=== PATIENT | male | born 1975 | race Caucasian/White ===

== ENCOUNTER 2021-09-27 09:10 | Outpatient (REF) | payer BC, SELFPAY ==
[2021-09-27 11:12] LABS: MANUAL DIFF FLAG NO
[2021-09-27 11:19] LABS: Basophils Percent Auto 0.6 % (0-2); Eosinophils Absolute Auto 0.2 X10*3/uL (0.0-0.4); Eosinophils Percent Auto 3.1 % (0-4); Hematocrit 46.2 % (42.0-52.0); Hemoglobin 15.9 g/dl (14.0-18.0); Imm Gran Abs Auto 0.01 X10*3/uL (0.00-0.03); Imm Gran Pct Auto 0.2 % (0.0-0.4); Lymphocytes Absolute Auto 2.7 X10*3/uL (1.2-4.9); Lymphocytes Percent Auto 42.6 % (20-40); Mean Corpuscular HGB Conc 34.4 g/dl (31.0-36.0); Mean Platelet Volume 9.3 fL (9.4-12.4); Monocytes Absolute Auto 0.6 X10*3/uL (0.1-1.2); Monocytes Percent Auto 8.8 % (2-11); Neutrophils Absolute Auto 2.9 x10*3/uL (2.0-8.3); Neutrophils Percent Auto 44.7 % (45-73); Platelet Count 267 X10*3/uL (160-400); Red Blood Count 4.97 X10*6/uL (4.60-5.80); Red Cell Distribution Width 11.9 % (11.0-16.0); White Blood Count 6.4 X10*3/uL (4.8-10.8)
[2021-09-27 11:40] LABS: Alanine Aminotransferase 52 U/L (0-40); Albumin Level 4.1 g/dL (3.5-5.0); Alkaline Phosphatase 101 U/L (39-117); Anion Gap 13 (12-20); Aspartate Amino Transferase 39 U/L (5-37); Bilirubin Total 0.5 mg/dL (0.0-1.0); Blood Urea Nitrogen 14 mg/dL (9-16); Calcium 9.4 mg/dL (8.4-10.2); Carbon Dioxide 26 mmol/L (22-29); Chloride 105 mmol/L (96-108); Cholesterol 196 mg/dL; Estimated Glomerular Filt Rate > 60; Glucose Fasting 86 mg/dL (60-99); HDL Cholesterol 43 mg/dL; LDL Cholesterol Calculated 111 mg/dl; Potassium 4.1 mmol/L (3.3-5.1); Sodium 140 mmol/L (135-145); Total Protein 7.2 g/dL (6.5-8.0); Triglycerides 210 mg/dL
[2021-09-27 11:46] LABS: Vitamin D 25-OH Total 29.3 ng/mL (>30)
[2021-09-29 05:24] LABS: Folate 4.6 ng/mL (> or = 4.0); Vitamin B12 357 pg/mL (200-900)
== END 2021-09-27 09:11 | disposition home or self-care (01) ==
LOC: HO.HMGCLDS 09:10
PROVIDERS: Visit Provider Internal Medicine
DX: Z00.01 Encounter for general adult medical examination with abnormal findings (principal)
CPT/HCPCS: 36415; 80053; 80061; 82306; 82607; 82746; 85025

== ENCOUNTER → 2021-11-24 12:02 | Outpatient (BNVA) | payer BC, SELFPAY | PROVIDERS: PCP Internal Medicine; Referring Provider Internal Medicine; Visit Provider Physician Assistant | DX: Z13.89 Encounter for screening for other disorder (principal) ==

== ENCOUNTER 2022-07-06 09:30 | Day surgery (SDC) | payer BC, SELFPAY ==
[2022-06-29 10:16] VITALS: BMI 29.4
--- NOTE | 2022-07-03 11:06 | HO.ANESPROP2 ---
Documented by User: Marlyn Espinoza NP 07/03/22 11:06 HPI - Anesthesia Eval Consult details Narrative: 46yo M for Upper Endoscopy and Colonoscopy [facility] Active Problems Active Problems: All Active Problems (Updated 11/24/21 @ 12:53 by Diamond Polk PA-C) Encounter for screening colonoscopy (Acute) Essential hypertension (Acute) Alcohol use disorder, mild, in controlled environment (Acute ~11/24/21) Smoker unmotivated to quit (Acute) Chronic GERD (Acute) Past Medical History Medical History Alcohol use disorder, mild, in controlled environment (~11/24/21) Chronic GERD Essential hypertension Smoker unmotivated to quit Family History Family History Brother Substance use disorder Surgical History Surgical History (Updated 07/06/22 @ 10:02 by Denae Irby RN) H/O neck surgery Social History Social History (Updated 11/24/21 @ 12:29 by Diamond Polk PA-C) Housing: Apartment Alcohol intake: current Patient Tobacco Use Status: Current everyday Tobacco user Cigarette Packs Per Day: 0 Cigarettes Per Day: 12 Smoked in Last 30 Days: Yes e-Cigarette/Vaping Use: Never Used Patient Interested in Nicotine Replacement: No Are you DNR?: No Advance Directives: No Advance Directives Information Provided: Yes Nutrition Risks: No Nutritional Risk Current occupational status: employed Current occupation: [employer] Allergies Allergy/AdvReac Type Severity Reaction Status Date / Time cat dander [CAT] Allergy Mild SNEEZE Verified 07/06/22 09:48 DUST Allergy Mild SNEEZE Uncoded 07/06/22 10:11 Home Medications Medication Instructions Recorded Confirmed Last Taken Type amlodipine 5 mg-benazepril 10 mg 1 cap PO DAILY 09/16/21 07/06/22 07/05/22 History capsule omeprazole 20 mg capsule,delayed 20 mg PO DAILY 09/16/21 07/06/22 07/06/22 History release Exam Exam Date and Time: July 03, 2022 1106 Height,Weight and Vital Signs: Height 5 ft 10 in Weight 92.986 kg Assessment and Plan Assessment Anesthesia Assessment: Chart Reviewed Documented by User: Arianna Byrne MD 07/06/22 10:44 [facility] Past Medical History Medical History Alcohol use disorder, mild, in controlled environment (~11/24/21) Chronic GERD Essential hypertension Smoker unmotivated to quit Family History Family History Brother Substance use disorder Family history of problems with anesthesia: No Surgical History Surgical History (Updated 07/06/22 @ 10:02 by Denae Irby RN) H/O neck surgery History of Problems with Anesthesia: No Social History Social History (Updated 11/24/21 @ 12:29 by Diamond Polk PA-C) Housing: Apartment Alcohol intake: current Patient Tobacco Use Status: Current everyday Tobacco user Cigarette Packs Per Day: 0 Cigarettes Per Day: 12 Smoked in Last 30 Days: Yes e-Cigarette/Vaping Use: Never Used Patient Interested in Nicotine Replacement: No Are you DNR?: No Advance Directives: No Advance Directives Information Provided: Yes Nutrition Risks: No Nutritional Risk Current occupational status: employed Current occupation: [employer] Allergies Allergy/AdvReac Type Severity Reaction Status Date / Time cat dander [CAT] Allergy Mild SNEEZE Verified 07/06/22 09:48 DUST Allergy Mild SNEEZE Uncoded 07/06/22 10:11 Home Medications Medication Instructions Recorded Confirmed Last Taken Type amlodipine 5 mg-benazepril 10 mg 1 cap PO DAILY 09/16/21 07/06/22 07/05/22 History capsule omeprazole 20 mg capsule,delayed 20 mg PO DAILY 09/16/21 07/06/22 07/06/22 History release Exam Airway Mallampati Class: II (Missing one, one cap top right) TM Dist: >3cm Neck ROM: Full Heart: rrr Lungs: cta Assessment and Plan Assessment Anesthesia Assessment: Anesthesia Plan Discussed Final Anesthetic Review Family History of Problems with Anesthesia: No History of Problems with Anesthesia: No NPO: Yes ASA Class: II Final Preanesthetic Review: No Changes in Pt Med Stat, Meds/Allgs Chart Reviewed and Consent Obtained/Reviewed Patient Risk: Intermediate Procedure Risk: Intermediate Anesthetic Plan Anesthetic Plan: MAC: Disposition: Standard PACU
[2022-07-06] MEDS: Lactated Ringers 1,000 ML 100 ML IVCONT (09:49)
[2022-07-06 09:50] VITALS: BP 153/85; PULSE 70; RESP 18; TEMP 36.9; O2SAT 99
--- NOTE | 2022-07-06 10:09 | PC.NURSE ---
patient states he drinks vodka daily. states last drink was night before last. vs wnl. not diaphoretic. comfortable in bed. no hallucinations. not anxious.
--- NOTE | 2022-07-06 11:17 | MHC.SHP ---
Pre-Procedural Eval Section A Date of Service: 07/06/22 Section B Chief Complaint: reflux disease,screening Details of Present Illness: 46 y.o M with hx of obesity, smoking, etOH use here for EGD and colonoscopy for GERD/carranza' screening and CRC screening. Relevant Social History: Other (specify) (smokes, etOH use ) Present Medications: see Short Stay Collaborative assessment History of Previous Operations: No relevant previous surgery Allergies: Allergies Allergy/AdvReac Type Severity Reaction Status Date / Time cat dander [CAT] Allergy Mild SNEEZE Verified 07/06/22 09:48 DUST Allergy Mild SNEEZE Uncoded 07/06/22 10:11 Review of Systems Review of Systems Comment: 10 point ROS negative exceot as above Exam Exam Comment: Gen appear: No acute distress, well nourished HEENT: no icterus Chest: No overt resp distress Abd: soft, nontender, nondistended Psych: Stable affect, answering questions appropriately Neuro: A/Ox3 noted to move all extremities spontaneously Ext: no peripheral edema Plan Diagnosis/Plan: Unchanged I have reviewed the history and physical and performed a pertinent physical examination on my patient. No changes have occurred unless specified.
--- NOTE | 2022-07-06 11:38 | P.OP_ITS ---
Operative Note Operative Note Date of Service: 07/06/22 Narrative: Procedure: Esophagogastroduodenoscopy and colonoscopy Endoscopist: Sapphire Hernandez MD Indication: GERD, screening Anesthesia Provider: Dr Chastity Valdez Anesthesia Type: MAC Instrument: GIF-H190 and PCF-[id number] Consent: Indication, risks vs benefits, and alternatives were discussed with the patient who gave written informed consent to proceed. EKG, pulse, pulse oximetry and blood pressure were monitored throughout the procedure. Medications: Please see anesthesia flowsheet. Colonoscopy procedure: The patient was brought to the procedure room and placed in the left lateral decubitus position. IV medications were administered by the anesthesia provider in attendance. A digital rectal exam was performed which was normal. The colonoscope was then inserted through the anus and advanced through the colon to the cecum at 80 cm. Mucosa was carefully examined under high definition white light as the instrument was slowly withdrawn in a retrograde panoramic fashion. Retroflexion was performed in ascending colon and rectum. The procedure was not difficult. There were no immediate obvious complications. The quality of the prep was BBPS: 3+3+3 = excellent Withdrawal time 13 minutes. Limitations: No limitations. Findings: Mucosa: Normal to cecum. Protruding lesions: * 1 sessile polyp of size 7 mm in descending colon. Cold snare polypectomy was performed. The polyp was completely removed and retrieved. * Medium internal hemorrhoids without stigmata of recent bleeding. EGD Procedure:?? The patient was then turned for the upper endoscopy. The endoscope was introduced through the bite block, and advanced to the second part of duodenum. The mucosa was carefully examined on slow withdrawal of the endoscope. The patient tolerated the procedure well. There were no immediate complications.? ? EGD Findings:? * Esophagus:? Scattered whitish exudates were noted in the lower esophagus. Cold forceps biopsies were obtained. * Stomach:?A few erosions were noted in the antrum. Random cold forceps gastric biopsies were taken to rule out H Pylori infection. * Duodenum:? Normal mucosa was noted in the whole of the examined duodenum. ? Impression:? 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 * Internal hemorrhoids ?? Recommendations:?? * Follow biopsy results. Our office will call or send a letter with results within 7-10 days. * Start/continue PPI therapy. * If H pylori +, patient will be prescribed eradication therapy followed by test of cure. * Avoid NSAIDs. Smoking cessation * Repeat colonoscopy in 7-10 years. * Above has been reviewed with the patient. Relevant educational hand outs were provided at discharge.
[2022-07-06 11:54] VITALS: BP 112/73; PULSE 61; RESP 16; TEMP 36.3; O2SAT 96
[2022-07-06 12:09] VITALS: BP 150/77; PULSE 62; RESP 16; O2SAT 95
[2022-07-06 12:24] VITALS: BP 148/73; PULSE 61; RESP 16; TEMP 36.3; O2SAT 97
== END 2022-07-06 13:01 | disposition home or self-care (01) ==
PROVIDERS: PCP Internal Medicine; Visit Provider Internal Medicine
PROC: (CPT 45385; principal; 2022-07-06 10:30)
DX: Z12.11 Encounter for screening for malignant neoplasm of colon (principal); Z86.010 Personal history of colon polyps; D12.4 Benign neoplasm of descending colon; K64.8 Other hemorrhoids; K21.9 Gastro-esophageal reflux disease without esophagitis; B37.81 Candidal esophagitis; K29.50 Unspecified chronic gastritis without bleeding; F10.10 Alcohol abuse, uncomplicated; I10 Essential (primary) hypertension; Z79.899 Other long term (current) drug therapy; F17.200 Nicotine dependence, unspecified, uncomplicated
CPT/HCPCS: 45385; 43239; 88305; 88342

== ENCOUNTER → 2022-08-27 10:21 | Outpatient (BNVA) | payer BC, SELFPAY | PROVIDERS: PCP Internal Medicine; Visit Provider Physician Assistant | DX: Z13.89 Encounter for screening for other disorder (principal) ==

== ENCOUNTER 2023-11-23 12:03 | Outpatient (AMB) | payer OTHER, SELFPAY ==
--- NOTE | 2023-11-23 11:57 | HO.NEPHOV_ITS ---
HPI HPI Comments History of Present Illness Details 48-year-old man with hypertension. He was previously seen few years ago. He remains compliant with his medications. Still drinks 10 light beers a day. Used to drink 20! 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:58 Height 5 ft 10 in Weight 215 lb BMI 30.8 BP 118/78 Blood Pressure Location Lt brachial Position Sitting Pulse 67 Pulse Source Pulse Oximeter Pulse Oximetry (%) 98 Oxygen Delivery Method Room Air Physical Exam Vital Signs: Last Vital Signs Pulse 67 11/23/23 11:58 BP 118/78 11/23/23 11:58 Pulse Ox 98 11/23/23 11:58 Oxygen Delivery Method Room Air 11/23/23 11:58 BMI result Body Mass Index 30.8 Const General: comfortable Nutritional Appearance: well nourished Orientation/consciousness: patient oriented x3 HEENT Head: No normal to inspection Mouth: moist mucous membranes Neck Neck: Yes supple and Yes no JVD Resp Auscultation: clear to auscultation bilaterally, no rales and rub present Cardio Jugular venous distension: no JVD Palpation: no palpable S3 and no palpable S4 Heart sounds: no rubs GI Palpation (GI): Soft to palpation and nontender Percussion: No Fluid wave present General: Yes no CVA tenderness Back/Spine/Pelvis Back: no CVA tenderness Skin General skin exam: no rashes or lesions noted Neuro General: patient oriented x3 Extrem General: Yes no pedal edema and No clubbing Assessment & Plan Assessment & Plan (1) Essential hypertension: Code(s): I10 - Essential (primary) hypertension Plan: Blood pressure well controlled Discussed low-salt diet. Encouraged him to cut back on alcohol intake. Refills were given for the current prescription. Routine lab work ordered Orders: Orders Basic Metabolic Panel Today I10 - Essential (primary) hypertension Creatinine Urine Today I10 - Essential (primary) hypertension, N05.9 - Unsp ecified nephritic syndrome with unspecified morphologic changes UA and rflx microscopic Today I10 - Essential (primary) hypertension Total Protein Urine Random Today I10 - Essential (primary) hypertension Medications: Refilled amlodipine-benazepril 5-10 mg 1 cap PO DAILY 90 caps 2RF Coding Level of Care Code New Pt Level 4 (65886) Diagnoses Essential hypertension I10 Results Reviewed Nephrology Results: Hgb 15.9 g/dl (14.0-18.0) 09/27/21 WBC 6.4 X10*3/uL (4.8-10.8) 09/27/21 Plt Count 267 X10*3/uL (160-400) 09/27/21 Sodium 140 mmol/L (135-145) 09/27/21 Potassium 4.1 mmol/L (3.3-5.1) 09/27/21 Chloride 105 mmol/L (96-108) 09/27/21 Carbon Dioxide 26 mmol/L (22-29) 09/27/21 BUN 14 mg/dL (9-16) 09/27/21 Creatinine 0.87 mg/dL (0.5-1.4) 09/27/21 Calcium 9.4 mg/dL (8.4-10.2) 09/27/21 Urine Protein NEGATIVE MG/DL (NEG - TRACE) 02/14/19
[2023-11-23 11:58] VITALS: BP 118/78; PULSE 67; O2SAT 98; BMI 30.8
== END 2023-11-23 12:30 | disposition home or self-care (01) ==
PROVIDERS: PCP Internal Medicine; Visit Provider Internal Medicine Hypertension Specialist
DX: I10 Essential (primary) hypertension (principal)
CPT/HCPCS: 99204

== ENCOUNTER → 2023-11-23 12:03 | Outpatient (BNVA) | payer OTHER, SELFPAY | PROVIDERS: PCP Internal Medicine; Visit Provider Internal Medicine Hypertension Specialist | DX: I10 Essential (primary) hypertension (principal) | CPT/HCPCS: 99202 ==

== ENCOUNTER 2023-11-24 07:57 | Outpatient (REF) | payer OTHER, SELFPAY ==
[2023-11-24 10:34] LABS: Appearance Urine Clear; Color Urine Yellow; Glucose Urine UA Negative (Negative); Leukocyte Esterase Urine Negative (Negative); Nitrite Urine Negative (Negative); Urine Blood Negative (Negative); Urine Ketones Negative (Negative); Urine Protein Negative (Neg-Trace)
[2023-11-24 10:54] LABS: Anion Gap 12 (12-20); Blood Urea Nitrogen 15 mg/dL (9-16); Calcium 9.1 mg/dL (8.4-10.2); Carbon Dioxide 25 mmol/L (22-29); Chloride 106 mmol/L (96-108); Estimated Glomerular Filt Rate > 60; Glucose Random 78 mg/dL (60-115); Potassium 4.2 mmol/L (3.3-5.1); Sodium 139 mmol/L (135-145)
[2023-11-24 12:02] LABS: Creatinine Urine 158.03 mg/dL; Total Protein Urine Random < 7 mg/dL (<12)
== END 2023-11-24 07:58 | disposition home or self-care (01) ==
LOC: HO.HMGCLDS 07:57
PROVIDERS: PCP Internal Medicine; Visit Provider Internal Medicine Hypertension Specialist
DX: I10 Essential (primary) hypertension (principal); N05.9 Unspecified nephritic syndrome with unspecified morphologic changes
CPT/HCPCS: 36415; 80048; 81003; 82570; 84156

== ENCOUNTER 2024-06-05 09:28 | Outpatient (AMB) | payer OTHER, SELFPAY ==
--- NOTE | 2024-06-05 09:56 | MHC.PC.OV ---
Vital Signs 06/05/24 09:57 Height 5 ft 10 in Weight 215 lb BMI 30.8 BP 132/82 Blood Pressure Location Rt brachial Position Sitting Pulse 66 Pulse Source Pulse Oximeter Pulse Oximetry (%) 97 Oxygen Delivery Method Room Air Intake Visit Reasons: PE- NEEDS PHQ-9 Intake Note: Pt is here today for her PE Allergies cat dander [CAT] Allergy (Mild, Verified 06/05/24 10:15) SNEEZE DUST Allergy (Mild, Uncoded 06/05/24 10:15) SNEEZE Medication List - Last Reconciled 06/05/24 by Sarah Palmer MD amlodipine-benazepril 5-10 mg 1 cap PO DAILY omeprazole 20 mg PO DAILY Tobacco use date assessed: 06/05/24 Dental Screening Dental Screen Date: 06/05/24 Did you have a dental visit in the last 12 months?: No Did you have a dental problem in the last 6 months where you did not have access to dental care?: No Was dental information given to patient?: Patient has dentist HPI PE- NEEDS PHQ-9 HPI Details 48 year old male with hypertension , has chronic GERD, cigarette smoker unmotivated to quit, here for a physical exam. He has been compliant with taking his medications currently on amlodipine-benazepril 5-10 mg taken 1 daily, and takes omeprazole 20 mg once a day for his heartburn. Has heavy alcohol use, drinks at least 5 or 6 beers almost daily. History of adenomatous colon polyp removed by Dr. Hernandez on colonoscopy done in 2021. Due again for repeat in 2026. [facility] Medical History (Updated 06/11/24 @ 18:02 by Sarah Palmer MD) Heavy alcohol use History of adenomatous polyp of colon Elevated liver transaminase level Tubular adenoma of colon Essential hypertension Smoker unmotivated to quit Chronic GERD Surgical History History of esophagogastroduodenoscopy (EGD) Hx of colonoscopy H/O neck surgery Family History Brother Substance use disorder Social History Housing: Apartment Alcohol intake: current Patient Tobacco Use Status: Current everyday Tobacco user Cigarette Packs Per Day: 0 Cigarettes Per Day: 12 e-Cigarette/Vaping Use: Never Used Current occupational status: 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 1. Little interest or pleasure in doing things: not at all 2. Feeling down, depressed, or hopeless: not at all 3. Trouble falling or staying asleep, or sleeping too much: not at all 4. Feeling tired or having little energy: not at all 5. Poor appetite or overeating: not at all 6. Feeling bad about yourself - or that you are a failure or have let yourself or your family down: not at all 7. Trouble concentrating on things, such as reading the newspaper or watching television: not at all 8. Moving or speaking so slowly that other people could have noticed. Or the opposite - being so fidgety or restless that you have been moving around a lot more than usual: not at all 9. Thoughts that you would be better off or of hurting yourself in some way: not at all Total score: 0 Depression Screening Interpretation: Negative Depression Screening Done: Yes 81102 - PHQ-9 Billing: Yes Source: Developed by Drs. Matthew Valle, Renetta Cabral, Gian Samaniego and colleagues, with an educational perfecto from [employer]. Thrive Questionnaire Date Thrive assessed: 06/05/24 I am a: Patient What is your living situation today?: I have a steady place to live Within the past 12 months, did the food you bought not last and you didn't have the money to get more?: Never true Within the past 12 months, did you worry whether your food would run out before you got money to buy more?: Never true Do you have trouble paying for medicines?: No Do you have trouble getting transportation to medical appointments?: No Do you have trouble paying your heating and electricity bill?: No Do you have trouble taking care of your child, family member or friend?: No Do you have trouble with day-to-day activities such as bathing, preparing meals, shopping, managing finances, etc.?: No Are you currently unemployed and looking for a job?: No Are you interested in more education?: No Please select the resources that you would like help with: None Currently or been in a relationship where the following occur: No concerns reported THRIVE Score: 0 AUDIT C Alcohol Use Questionnaire (AUDIT-C) 1. How often do you have a drink containing alcohol?: 4 or more times a week 2. How many drinks containing alcohol do you have on a typical day when you are drinking?: 5 or 6 3. How often do you have six or more drinks on one occasion?: Never Total Score: 6 Score Reviewed/Action Taken: Yes (Patient strongly encouraged to cut back abstain from all alcohol intake) CHUY-7 AMB Questionnaire CHUY-7 Date CHUY - 7 assessed: 06/05/24 Feeling nervous, anxious, or on edge: 0 = Not at all Not being able to stop or control worryin = Not at all Worrying too much about different things: 0 = Not at all Trouble relaxin = Not at all Being so restless that it is hard to sit still: 0 = Not at all Becoming easily annoyed or irritable: 0 = Not at all Feeling afraid as if something awful might happen: 0 = Not at all Total CHUY-7 score (0-4 normal; 5-9 mild; 10-14 moderate; 15-21 severe): 0 Source: Developed by Drs. Matthew Valle, Renetta Cabral, Gian Samaniego and colleagues, with an educational perfecto from [employer]. CHUY-7 Assessment Billing CHUY-7 Assessment Tool: CHUY-7 Assessment 78953 Review of Systems Const Denies body aches, Denies fatigue, Denies fever(s), Denies headache(s), Denies weakness, Denies weight gain and Denies weight loss Eyes Denies change in vision ENT Denies dizziness, Denies headache(s), Denies nasal congestion, Denies nasal discharge and Denies sore throat Card Denies chest pain, Denies lightheadedness, Denies palpitations and Denies dyspnea Resp Denies chest congestion, Denies cough, Denies dyspnea and Denies wheezing GI Denies abdominal pain, Denies change in bowel habits and Denies heartburn Denies dysuria, Denies urinary frequency and Denies urinary urgency Musc Reports no additional complaints Skin/Breast Denies lesions and Denies rash Neuro Denies dizziness, Denies headache(s) and Denies weakness Psych Reports as per HPI Endo Denies fatigue, Denies polydipsia, Denies polyuria and Denies palpitations Juliocesar/Lymph Denies easy bruising Aller/Immun Denies seasonal rhinorrhea and Denies wheezing Physical exam (Primary Care) Vital Signs: Last Vital Signs Pulse 66 06/05/24 09:57 BP 132/82 06/05/24 09:57 Pulse Ox 97 06/05/24 09:57 Oxygen Delivery Method Room Air 06/05/24 09:57 BMI result Body Mass Index 30.8 Tobacco/Smoking Status: Tobacco use Status Tobacco use date assessed 06/05/24 06/05/24 09:59 Patient Tobacco Use Status Current everyday Tobacco 06/05/24 09:59 e-Cigarette/Vaping Use Never Used 06/05/24 09:59 PHQ-9: PHQ-9 Score PHQ-9: Total score 0 06/05/24 10:17 Depression Screening Interpretation: Negative Thrive Assessment: Date of Thrive Assessment Date Thrive assessed 06/05/24 06/05/24 09:59 Currently or been in a relationship where the following occur: No concerns reported Const General: cooperative, comfortable and no acute distress Nutritional Appearance: obese Orientation/consciousness: patient oriented x3 HENMT Head: Yes normocephalic Ears: hearing grossly normal bilaterally, TM's normal bilaterally and EAC's normal General nose exam: Normal external nose present and No nasal discharge present Face and sinus: Yes face symmetric Mouth: Normal oral and palatal mucosa present and moist mucous membranes Eyes General: appearance normal, both eyes and all related structures Neck Neck: Yes full ROM, Yes no lymphadenopathy and Yes supple Thyroid: Thyroid normal Chest Chest palpation & inspection: normal inspection of the chest Resp Effort & Inspection: normal respiratory effort and able to speak in complete sentences Auscultation: clear to auscultation bilaterally Cardio Other: S1-S2 present regular rate and rhythm GI Inspection: Yes normal to inspection Palpation (GI): Soft to palpation, nontender, no guarding and no masses Auscultation: normal bowel sounds Male General Exam: Yes normal external exam Back/Spine/Pelvis Back: No back tenderness Skin General skin exam: no rashes or lesions noted Neuro General: patient oriented x3, gait normal, tone normal, moves all extremities, Normal light touch and pain sensation, no focal motor deficits and CN's II-XI intact bilaterally Extrem General: Yes full ROM, Yes no joint enlargement, Yes no clubbing, cyanosis or edema, Yes no pedal edema, Yes no calf tenderness and Yes normal gait Psych Appearance: grossly normal and well kempt Mental Status: mental status grossly normal Speech and movement: Normal speech and movement present Affect: normal affect Attitude: cooperative Thought process: Normal thought process present Coding Level of Care Code Est Pt Prev Care 40-64y(66387) Diagnoses Annual visit for general adult medical examination with abnormal findings Z00.01 Chronic GERD K21.9 Smoker unmotivated to quit F17.200 Essential hypertension I10 Elevated liver transaminase level R74.01 History of adenomatous polyp of colon Z86.0101 History of vitamin D deficiency Z86.39 Heavy alcohol use F10.90 Advanced directives, counseling/discussion Z71.89 Additional Codes CHUY-7 Assessment Billing - CHUY-7 Assessment Tool: CHUY-7 Assessment 87393 ([id number]) Assessment & Plan Assessment & Plan (1) Annual visit for general adult medical examination with abnormal findings: Code(s): Z00.01 - Encounter for general adult medical examination with abnormal findings Plan: Will check appropriate labs. Recommended dental visit every 6 months and regular eye exams, at least every 2 years. Take adequate calcium in diet and vitamin-D 3 at 2000 IU per cap once a day, in addition to weight-bearing exercises to help maintain good muscle tone and weight control. Instructed to do self testicular exam check for any mass. Up-to-date with his screening colonoscopy, due again for recheck in 2026. Reminded to get his COVID booster, but does not want to get a flu vaccine, Tdap given in 2013, reminded that his due for a tetanus diphtheria booster this year, which he can get at the pharmacy (2) Chronic GERD: Code(s): K21.9 - Gastro-esophageal reflux disease without esophagitis Category: Medical Plan: Advised to cut back or abstain from drinking any alcoholic beverage, cut back on caffeine, smoking, continued on omeprazole 20 mg daily (3) Smoker unmotivated to quit: Code(s): F17.200 - Nicotine dependence, unspecified, uncomplicated Category: Social Hx Plan: Patient strongly advised to stop smoking, as smoking damages blood vessels, degenerative of joints and spine, damage to lungs and heart., predisposes to developing certain cancers like lung, breast, bladder, colon. Recommended to try decreasing cigarette use by 1-2 cigarettes a day. Advised to monitor what triggers are for smoking so that this can be discussed on the next office visit. We can discuss different options to quit smoking when ready. (4) Essential hypertension: Code(s): I10 - Essential (primary) hypertension Category: Medical Plan: Blood pressure at goal of less than 130/80. Continue with current medication. Reinforced importance of following a low sodium diet, getting regular exercise, and lowering stress levels. (5) Elevated liver transaminase level: Code(s): R74.01 - Elevation of levels of liver transaminase levels Category: Medical Plan: Patient with history of elevated liver enzymes likely due to fatty liver and alcohol intake (6) History of adenomatous polyp of colon: Comment: Seen on colonoscopy [address] Hernandez Code(s): Z86.0101 - Personal history of adenomatous and serrated colon polyps Category: Medical Plan: Due again for repeat colonoscopy 2026 (7) History of vitamin D deficiency: Code(s): Z86.39 - Personal history of other endocrine, nutritional and metabolic disease Plan: Will check vitamin-D level (8) Heavy alcohol use: Code(s): F10.90 - Alcohol use, unspecified, uncomplicated Category: Social Hx Plan: Strongly encouraged to abstain from cut back from alcohol intake. Offered referral for help with quitting patient declined (9) Advanced directives, counseling/discussion: Code(s): Z71.89 - Other specified counseling Plan: Initiated the conversation about Advanced Directives. Advanced Directives help patients prepare for current and future decisions about their medical treatment and place of care. Discussed with patient that it is a process where a patients current condition and prognosis are reviewed, their wishes for information regarding their illness are elicited, and likely medical dilemmas are presented and options discussed. Healthcare proxy form completed today The form can be amended as needed, reviewed yearly and make changes as needed Orders: Orders Comprehensive [place]. Panel Fast 06/05/24 F10.10 - Alcohol abuse, uncomplicated, F17.200 - Nicotine dependence, unspecified, uncomplicated, I10 - Essential (primary) hypertension, K21.9 - Gastro-esophageal reflux disease without esophagitis, R74.01 - Elevation of levels of liver transaminase levels, Z86.0101 - Personal history of adenomatous and serrated colon polyps Lipid Panel 06/05/24 F10.10 - Alcohol abuse, uncomplicated, F17.200 - Nicotine dependence, unspecified, uncomplicated, I10 - Essential (primary) hypertension, K21.9 - Gastro-esophageal reflux disease without esophagitis, R74.01 - Elevation of levels of liver transaminase levels, Z86.0101 - Personal history of adenomatous and serrated colon polyps Vitamin D 25-OH Total 06/05/24 Z86.39 - Personal history of other endocrine, nutritional and metabolic disease
[2024-06-05 09:57] VITALS: BP 132/82; PULSE 66; O2SAT 97; BMI 30.8
== END 2024-06-05 10:34 | disposition home or self-care (01) ==
PROVIDERS: PCP Internal Medicine; Visit Provider Internal Medicine
DX: Z00.01 Encounter for general adult medical examination with abnormal findings (principal); K21.9 Gastro-esophageal reflux disease without esophagitis; F17.200 Nicotine dependence, unspecified, uncomplicated; I10 Essential (primary) hypertension; R74.01 Elevation of levels of liver transaminase levels; Z86.0101 Personal history of adenomatous and serrated colon polyps; Z86.39 Personal history of other endocrine, nutritional and metabolic disease; F10.90 Alcohol use, unspecified, uncomplicated; Z71.89 Other specified counseling

== ENCOUNTER → 2024-06-05 09:28 | Outpatient (BNVA) | payer OTHER, SELFPAY | PROVIDERS: PCP Internal Medicine; Visit Provider Internal Medicine | DX: Z00.00 Encounter for general adult medical examination without abnormal findings (principal); K21.9 Gastro-esophageal reflux disease without esophagitis; I10 Essential (primary) hypertension; R74.01 Elevation of levels of liver transaminase levels; F10.90 Alcohol use, unspecified, uncomplicated; F17.210 Nicotine dependence, cigarettes, uncomplicated; Z86.0101 Personal history of adenomatous and serrated colon polyps; Z86.39 Personal history of other endocrine, nutritional and metabolic disease; Z79.899 Other long term (current) drug therapy; Z71.89 Other specified counseling | CPT/HCPCS: 96127; 99396 ==

== ENCOUNTER 2024-06-05 10:36 | Outpatient (REF) | payer OTHER, SELFPAY ==
[2024-06-05 13:52] LABS: Alanine Aminotransferase 28 U/L (0-40); Albumin Level 4.1 g/dL (3.5-5.0); Alkaline Phosphatase 115 U/L (39-117); Anion Gap 10 (12-20); Aspartate Amino Transferase 31 U/L (5-37); Bilirubin Total 0.5 mg/dL (0.0-1.0); Blood Urea Nitrogen 12 mg/dL (9-16); Calcium 9.5 mg/dL (8.4-10.2); Carbon Dioxide 26 mmol/L (22-29); Chloride 106 mmol/L (96-108); Cholesterol 176 mg/dL (<200); Estimated Glomerular Filt Rate > 60; Glucose Fasting 88 mg/dL (60-99); HDL Cholesterol 45 mg/dL (>40); LDL Cholesterol Calculated 103 mg/dL (<100); Potassium 4.1 mmol/L (3.3-5.1); Sodium 138 mmol/L (135-145); Total Protein 7.2 g/dL (6.5-8.0); Triglycerides 140 mg/dL (<150); Vitamin D 25-OH Total 45.9 ng/mL (>30)
== END 2024-06-05 10:37 | disposition home or self-care (01) ==
LOC: HO.HMGCLDS 10:36
PROVIDERS: PCP Internal Medicine; Visit Provider Internal Medicine
DX: K21.9 Gastro-esophageal reflux disease without esophagitis (principal); Z86.39 Personal history of other endocrine, nutritional and metabolic disease; R74.01 Elevation of levels of liver transaminase levels; I10 Essential (primary) hypertension; F10.10 Alcohol abuse, uncomplicated; F17.200 Nicotine dependence, unspecified, uncomplicated; Z86.0101 Personal history of adenomatous and serrated colon polyps
CPT/HCPCS: 36415; 80053; 80061; 82306

== ENCOUNTER 2024-12-22 13:48 | Outpatient (AMB) | payer OTHER, SELFPAY ==
[2024-12-22 13:53] VITALS: BP 122/70; PULSE 78; O2SAT 97; BMI 29.7
--- NOTE | 2024-12-22 13:53 | HO.NEPHOV_ITS ---
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 He was previously seen few years ago. He remains compliant with his medications. Still drinks 10 light beers a day. Used to drink 20! [facility] Medical History (Updated 06/11/24 @ 18:02 by Sarah Palmer MD) Heavy alcohol use History of adenomatous polyp of colon Elevated liver transaminase level Tubular adenoma of colon Essential hypertension Smoker unmotivated to quit Chronic GERD Surgical History History of esophagogastroduodenoscopy (EGD) Hx of colonoscopy H/O neck surgery Family History Brother Substance use disorder Social History Housing: Apartment Alcohol intake: current Patient Tobacco Use Status: Current everyday Tobacco user Cigarette Packs Per Day: 0 Cigarettes Per Day: 12 e-Cigarette/Vaping Use: Never Used Current occupational status: 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 Cognitive needs: No Hearing needs: No Vision needs: No Physical Exam Vital Signs: Last Vital Signs Pulse 78 12/22/24 13:53 BP 122/70 12/22/24 13:53 Pulse Ox 97 12/22/24 13:53 Oxygen Delivery Method Room Air 12/22/24 13:53 BMI result Body Mass Index 29.7 Const General: comfortable Nutritional Appearance: well nourished Orientation/consciousness: patient oriented x3 HEENT Head: No normal to inspection Mouth: moist mucous membranes Neck Neck: Yes supple and Yes no JVD Resp Auscultation: clear to auscultation bilaterally and no rales Cardio Jugular venous distension: no JVD Palpation: no palpable S3 and no palpable S4 Heart sounds: no rubs GI Palpation (GI): Soft to palpation and nontender Percussion: No Fluid wave present General: Yes no CVA tenderness Back/Spine/Pelvis Back: no CVA tenderness Skin General skin exam: no rashes or lesions noted Neuro General: patient oriented x3 Extrem General: Yes no pedal edema and No clubbing Results Reviewed Nephrology Results: Sodium 138 mmol/L (135-145) 06/05/24 Potassium 4.1 mmol/L (3.3-5.1) 06/05/24 Chloride 106 mmol/L (96-108) 06/05/24 Carbon Dioxide 26 mmol/L (22-29) 06/05/24 BUN 12 mg/dL (9-16) 06/05/24 Creatinine 0.99 mg/dL (0.5-1.4) 06/05/24 Calcium 9.5 mg/dL (8.4-10.2) 06/05/24 Urine Protein Negative mg/dL (Neg-Trace) 11/24/23 Urine Creatinine 158.03 mg/dL 11/24/23 Assessment & Plan Assessment & Plan (1) Essential hypertension: Code(s): I10 - Essential (primary) hypertension Category: Medical Plan: Blood pressure well controlled Discussed low-salt diet. Encouraged him to cut back on alcohol intake. Refills were given for the current prescription. Renal fucntion is stable Orders: Orders Basic Metabolic Panel 6 Months I10 - Essential (primary) hypertension Coding Level of Care Code Est Pt Level 4 (83679) Diagnoses Essential hypertension I10
--- OUTSIDE RECORDS SUMMARY | 2024-12-22 13:53 | XMS_ITS | Encounter Summary ---
Author Organization [facility] Address [address] [place] [address] Phone Care Team Providers Care Video Coordinator Name Role Phone Mikel Palmer MD Primary Care Provider [phone]- [phone] Reason for Visit * Reason Comments Med Refill Encounter Details Date Type Department Care Team (Late st Contact Info) Description 09/14/2022 Refill [facility] [address] [place] [address] Tad Ramirez MD Social History Tobacco Use Types Packs/Day Years Used Date Smoking Tobacco: Every Day Cigarettes Alcohol Use Standard Drinks/Week Comments Yes 0 (1 standard drink = 0.6 oz pure alcohol) Alcoholic Drinks/day: 3 or more drinks per day Sex and Gender Information Value Date Recorded Sex Assigned at Not on file Legal Sex Male 4:51 PM EST Gender Identity Not on file Sexual Orientation Not on file documented as of this encounter Plan of Treatment Not on file documented as of this encounter Visit Diagnoses Not on filedocumented in this encounter Care Teams Video Coordinator Relationship Specialty Start Date End Date Mikel Palmer MD [address] [place] [id number] PCP - General 08/26/20 documented as of this encounter
--- OUTSIDE RECORDS SUMMARY | 2024-12-22 13:53 | XMS_ITS | Clinical Summary ---
Author Organization [facility] Address [address] [address] Care Team Providers Care Beverage Sales Consultant Name Role Phone Mikel Palmer MD Primary Care Provider [phone]- [phone] Medications amLODIPine-tabitha zepril (LOTREL 5-10) 5-10 MG per capsule TAKE 1 CAPSULE BY MOUTH EVERY DAY 90 capsule 1 04/12/2023 Active Family History Medical History Relation Comments Hypertension Father Cancer Mother breast Relation Status Comments Father Alive Mother Alive Social History Tobacco Use Types Packs/Day Years [...] on file Sexual Orientation Not on file Plan of Treatment Health Maintenance Due Date Last Done Comments Hepatitis B Vaccine (1 of 3 - 19+ 3-dose series) 09/23 Pneumococcal Vaccine: Peds ( 0 to 5 Years) and At-Risk Patients (6 to 49 Years) (1 of 2 - PCV) 1995 Influenza Vaccine (Season Ended) 2025 Care Teams Beverage Sales Consultant Relationship Specialty Start Date End Date Mikel Palmer MD [address] [place] [phone] PCP - General 08/26/20
== END 2024-12-22 14:03 | disposition home or self-care (01) ==
LOC: HO.HKA 13:50
PROVIDERS: PCP Internal Medicine; Visit Provider Internal Medicine Hypertension Specialist
DX: I10 Essential (primary) hypertension (principal)
CPT/HCPCS: 99214

== ENCOUNTER → 2024-12-22 13:48 | Outpatient (BNVA) | payer OTHER, SELFPAY | PROVIDERS: PCP Internal Medicine; Visit Provider Internal Medicine Hypertension Specialist ==

== ENCOUNTER 2025-04-09 12:45 | Outpatient (AMB) | payer OTHER, SELFPAY ==
[2025-04-09 13:20] VITALS: BP 126/64; PULSE 77; TEMP 36.9; O2SAT 99; BMI 29.4
--- NOTE | 2025-04-09 13:20 | MHC.OFFWIV ---
Intake Vital Signs 04/09/25 13:20 Height 5 ft 10 in Weight 205 lb BMI 29.4 BP 126/64 Blood Pressure Location Rt brachial Position Sitting Pulse 77 Pulse Source Pulse Oximeter Temp 98.4 F Temp Source Oral Pulse Oximetry (%) 99 Oxygen Delivery Method Room Air Intake Visit Reasons: EP low back pain Intake Note: pt presents with low back pain that began 4 days ago Patient Tobacco Use Status: Current everyday Tobacco user Allergies cat dander (CAT) Allergy (Mild, Verified 04/09/25 13:22) SNEEZE DUST Allergy (Mild, Uncoded 06/05/24 10:15) SNEEZE Do you need a note to return to daycare/school/sports/work: Yes HPI HPI Comments History of Present Illness Details 49 y/o Male patient who presents to the walk in clinic with c/o Low back pain for 4 days. 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 Denies Numbness or tingling. Denies any bowel or bladder. He has been using Advil with good relief. [facility] Medical History (Updated 04/09/25 @ 14:05 by Rosaura Powell NP) Low back pain Heavy alcohol use History of adenomatous polyp of colon Elevated liver transaminase level Tubular adenoma of colon Essential hypertension Smoker unmotivated to quit Chronic GERD Surgical History History of esophagogastroduodenoscopy (EGD) Hx of colonoscopy H/O neck surgery Family History Brother Substance use disorder Social History Housing: Apartment Alcohol intake: current Patient Tobacco Use Status: Current everyday Tobacco user Cigarette Packs Per Day: 0 Cigarettes Per Day: 12 e-Cigarette/Vaping Use: Never Used Current occupational status: 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 Cognitive needs: No Hearing needs: No Vision needs: No Review of Systems Const All systems reviewed & are unremarkable except as noted in HPI and below Physical Exam Vital Signs: Last Vital Signs Temp 98.4 F 04/09/25 13:20 Pulse 77 04/09/25 13:20 BP 126/64 04/09/25 13:20 Pulse Ox 99 04/09/25 13:20 Oxygen Delivery Method Room Air 04/09/25 13:20 BMI result Body Mass Index 29.4 Const General: no acute distress; No comfortable Nutritional Appearance: overweight Orientation/consciousness: patient oriented x3 Back/Spine/Pelvis Back: back tenderness Thoracic/Lumbar Spine: pain with thoraco-lumbar ROM, thoraco-lumbar spasm and lumbar spinal tenderness Neuro General: patient oriented x3, gait normal and moves all extremities Psych Speech and movement: Normal speech and movement present Assessment & Plan Assessment & Plan (1) Low back pain: Code(s): M54.50 - Low back pain, unspecified Qualifiers: Chronicity: acute Back pain laterality: midline Sciatica presence: without sciatica Qualified Code(s): M54.50 - Low back pain, unspecified Plan: Continue taking Advil for pain relief Ice/Heat Rest back. Coding Level of Care Code Est Pt Level 4 (54277) Diagnoses Acute midline low back pain without sciatica M54.50 Chronicity: acute Back pain laterality: midline Sciatica presence: without sciatica Time Spent (min) 20
--- OUTSIDE RECORDS SUMMARY | 2025-04-09 13:52 | XMS_ITS | Clinical Summary ---
Author Organization [facility] Address [address] [place] [address] Care Team Providers Care Roll Coating Machine Operator Name Role Phone Mikel Palmer MD Primary Care Provider [phone]- [phone] Medications amLODIPine-tabitha zepril (LOTREL 5-10) 5-10 MG [...] of 2 - PCV) 1995 Influenza Vaccine (#1) 2025 Care Teams Roll Coating Machine Operator Relationship Specialty Start Date End Date Mikel Palmer MD [address] [place] [id number] PCP - General 08/26/20
== END 2025-04-09 13:53 | disposition home or self-care (01) ==
PROVIDERS: PCP Internal Medicine; Visit Provider Nurse Practitioner Family
DX: M54.50 Low back pain, unspecified (principal)

== ENCOUNTER 2025-04-12 13:37 | Outpatient (REF) | payer OTHER, SELFPAY ==
--- NOTE | ~2025-04-12 | XR_ITS ---
EXAMINATION: XR LUMBOSACRAL SPINE CLINICAL INFORMATION: M54.50 - Low back pain, unspecified COMPARISON: None available. TECHNIQUE: Three views of the lumbosacral spine. FINDINGS: Transitional lumbosacral anatomy with a partially lumbarized S1 vertebral body. No scoliosis. Normal lordosis. No subluxation. No fracture, compression deformity, or suspicious bone lesion. Mild disc degeneration T12-L1. Disc spaces otherwise maintained. Facets normally aligned. No significant facet arthropathy. Mild left greater than right degenerative change in the SI joints. No soft tissue abnormalities. XR/XR lumbar spine 2-3V IMPRESSION: No acute findings of the lumbar spine. Electronically signed by: Ghulam Esquivel MD 04/12/2025 03:29 PM EDT
== END 2025-04-12 13:38 | disposition home or self-care (01) ==
LOC: HO.HMGCX 13:37
PROVIDERS: PCP Internal Medicine; Visit Provider Nurse Practitioner Family
DX: M54.50 Low back pain, unspecified (principal); Z79.1 Long term (current) use of non-steroidal anti-inflammatories (NSAID)
CPT/HCPCS: 72100

== ENCOUNTER 2025-04-12 13:37 | Outpatient (AMB) | payer OTHER, SELFPAY ==
--- OUTSIDE RECORDS SUMMARY | 2025-04-12 14:22 | XMS_ITS | Encounter Summary ---
Author Organization [facility] Address [address] [place] [address] Phone Care Team Providers Care Federal Agent Name Role Phone Mikel Palmer MD Primary Care Provider +1- [phone] Reason for Visit * Reason Comments Med Refill Encounter Details Date Type Department Care Team (Late st Contact Info) Description 09/14/2022 Refill [facility] [address] [place] [id number] Tad Ramirez MD Social History Tobacco Use [...] on filedocumented in this encounter Care Teams Federal Agent Relationship Specialty Start Date End Date Mikel Palmer MD [address] [place] [phone] PCP - General 08/26/20 documented as of this encounter
--- OUTSIDE RECORDS SUMMARY | 2025-04-12 14:22 | XMS_ITS | Clinical Summary ---
Author Organization [facility] Facility Address [address] [place] [address] Care Team Providers Care Automatic Vulcanizing Operator Name Role Phone Mikel Palmer MD Primary Care Provider [phone]- [phone] Medications amLODIPine-tabitha zepril (LOTREL 5-10) 5-10 MG [...] 1995 Influenza Vaccine (#1) 2025 Care Teams Automatic Vulcanizing Operator Relationship Specialty Start Date End Date Mikel Palmer MD [address] [place] [id number] PCP - General 08/26/20
[2025-04-12 14:28] VITALS: BP 114/66; PULSE 78; TEMP 36.9; O2SAT 98; BMI 29.4
--- NOTE | 2025-04-12 14:28 | AM.OFFWIN_ITS ---
Intake Vital Signs 04/12/25 14:28 Height 5 ft 10 in Weight 205 lb BMI 29.4 BP 114/66 Blood Pressure Location Lt brachial Position Sitting Pulse 78 Pulse Source Pulse Oximeter Temp 98.4 F Temp Source Oral Pulse Oximetry (%) 98 Oxygen Delivery Method Room Air Intake Visit Reasons: ep lower back pain Intake Note: pt presents for unresolved lower back pain, requests RTW note for 04/17/25 Patient Tobacco Use Status: Current everyday Tobacco user Allergies cat dander (CAT) Allergy (Mild, Verified 04/12/25 14:33) SNEEZE DUST Allergy (Mild, Uncoded 06/05/24 10:15) SNEEZE Do you need a note to return to daycare/school/sports/work: Yes HPI HPI Comments History of Present Illness Details 49 y/o Male patient who presents to the walk in clinic with c/o Lower back pain since Wednesday last week. Pt wants seen by me 04/09 for similar issue - he indicated then that the pain was not bad but he needed work note to stay home and rest his back. Today presents again to the clinic asking for work extension because the back is not going away. Denies numbness or tingling. Denies bowel or bladder symptoms. [facility] Medical History (Updated 04/09/25 @ 14:05 by Rosaura Powell NP) Low back pain Heavy alcohol use History of adenomatous polyp of colon Elevated liver transaminase level Tubular adenoma of colon Essential hypertension Smoker unmotivated to quit Chronic GERD Surgical History History of esophagogastroduodenoscopy (EGD) Hx of colonoscopy H/O neck surgery Family History Brother Substance use disorder Social History Housing: Apartment Alcohol intake: current Patient Tobacco Use Status: Current everyday Tobacco user Cigarette Packs Per Day: 0 Cigarettes Per Day: 12 e-Cigarette/Vaping Use: Never Used Current occupational status: 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 Cognitive needs: No Hearing needs: No Vision needs: No Review of Systems Const All systems reviewed & are unremarkable except as noted in HPI and below Physical Exam Vital Signs: Last Vital Signs Temp 98.4 F 04/12/25 14:28 Pulse 78 04/12/25 14:28 BP 114/66 04/12/25 14:28 Pulse Ox 98 04/12/25 14:28 Oxygen Delivery Method Room Air 04/12/25 14:28 BMI result Body Mass Index 29.4 Const General: no acute distress Nutritional Appearance: well nourished Orientation/consciousness: patient oriented x3 Back/Spine/Pelvis Back: back tenderness Thoracic/Lumbar Spine: pain with thoraco-lumbar ROM, thoraco-lumbar ROM limited with forward flexion, thoraco-lumbar spasm and lumbar spinal tenderness Neuro General: patient oriented x3, gait normal and moves all extremities Psych Speech and movement: Normal speech and movement present Assessment & Plan Assessment & Plan (1) Low back pain: Code(s): M54.50 - Low back pain, unspecified Qualifiers: Chronicity: acute Back pain laterality: midline Sciatica presence: without sciatica Qualified Code(s): M54.50 - Low back pain, unspecified Plan: Ordered Xray Lumbar. Ordered PT Continue taking Advil PRN for pain relief. Ice/Hot Orders: Orders XR lumbar spine 2-3V Today M54.50 - Low back pain, unspecified PT Evaluation and Treatment Today M54.50 - Low back pain, unspecified Coding Level of Care Code Est Pt Level 4 (72589) Diagnoses Acute midline low back pain without sciatica M54.50 Chronicity: acute Back pain laterality: midline Sciatica presence: without sciatica Time Spent (min) 20
== END 2025-04-12 14:56 | disposition home or self-care (01) ==
PROVIDERS: PCP Internal Medicine; Visit Provider Nurse Practitioner Family
DX: M54.50 Low back pain, unspecified (principal)

== ENCOUNTER → 2025-04-12 14:46 | Outpatient (BNV) | payer OTHER, SELFPAY | PROVIDERS: PCP Internal Medicine; Visit Provider Radiology Diagnostic Radiology | DX: M51.360 Other intervertebral disc degeneration, lumbar region with discogenic back pain only (principal) | CPT/HCPCS: 72100 ==

== ENCOUNTER 2025-05-15 07:57 | Outpatient (AMB) | payer OTHER, SELFPAY ==
--- OUTSIDE RECORDS SUMMARY | 2025-05-15 08:04 | XMS_ITS | Encounter Summary ---
Author Organization [facility] Address [address] [place] [address] Phone Care Team Providers Care Crab Backer Name Role Phone Mikel Palmer MD Primary Care Provider [phone]- [phone] Reason for Visit * Reason Comments Med Refill Encounter Details Date Type Department Care Team (Late st Contact Info) Description 09/14/2022 Refill [facility] [address] [place] [phone] Tad Ramirez MD Social History Tobacco Use [...] on filedocumented in this encounter Care Teams Crab Backer Relationship Specialty Start Date End Date Mikel Palmer MD [address] [place] [id number] PCP - General 08/26/20 documented as of this encounter
--- OUTSIDE RECORDS SUMMARY | 2025-05-15 08:04 | XMS_ITS | Clinical Summary ---
Author Organization [facility] Facility Address [address] [place] [address] Care Team Providers Care Atomic Fuel Assembler Name Role Phone Mikel Palmer MD Primary Care Provider [phone]- [phone] Medications amLODIPine-tabitha zepril (LOTREL 5-10) 5-10 MG [...] 1995 Influenza Vaccine (#1) 2025 Care Teams Atomic Fuel Assembler Relationship Specialty Start Date End Date Mikel Palmer MD [address] [place] [id number] PCP - General 08/26/20
[2025-05-15 08:07] VITALS: BP 122/74; PULSE 67; O2SAT 97; BMI 29.3
--- NOTE | 2025-05-15 08:07 | MHC.PC.OV ---
Vital Signs 05/15/25 08:07 Height 5 ft 10 in Weight 204 lb BMI 29.3 BP 122/74 Blood Pressure Location Lt brachial Position Sitting Pulse 67 Pulse Source Pulse Oximeter Pulse Oximetry (%) 97 Oxygen Delivery Method Room Air Intake Visit Reasons: Back injury Allergies cat dander (CAT) Allergy (Mild, Verified 05/15/25 08:43) SNEEZE DUST Allergy (Mild, Uncoded 05/15/25 08:43) SNEEZE Medication List - Last Reconciled 05/15/25 by Sarah Palmer MD amlodipine-benazepril 5-10 mg 1 cap PO DAILY omeprazole 20 mg PO DAILY Tobacco use date assessed: 05/15/25 Dental Screening Dental Screen Date: 05/15/25 Did you have a dental visit in the last 12 months?: Yes Did you have a dental problem in the last 6 months where you did not have access to dental care?: No Was dental information given to patient?: Patient has dentist HPI Back injury HPI Details The patient is a 49-year-old male presenting with recurrent low back pain and muscle spasm. The patient reports waking up with the pain without any specific inciting event, and initially, it improved after 10 days of rest. However, upon returning to work, the pain worsened significantly, leading to further evaluation. The pain is described as a sharp, stabbing sensation localized to the lower back, without radiation to the legs. Physical therapy has recently been initiated, focusing on exercises such as squeezing a ball and using resistance bands, but the patient has not noticed significant improvement. The patient has a history of hypertension, managed with amlodipine, and gastroesophageal reflux disease, for which he takes omeprazole. He denies any previous significant back injuries or surgeries. The patient has been out of work since April 05 due to the severity of the pain, which is exacerbated by prolonged walking and standing. He has attempted to return to work but was unable to continue due to the pain. Presents today requesting for an FMLA application to be filled out in his short-term disability form completed [facility] Medical History (Updated 05/15/25 @ 08:56 by Sarah Palmer MD) Recurrent low back pain Low back pain Heavy alcohol use History of adenomatous polyp of colon Elevated liver transaminase level Tubular adenoma of colon Essential hypertension Smoker unmotivated to quit Chronic GERD Surgical History History of esophagogastroduodenoscopy (EGD) Hx of colonoscopy H/O neck surgery Family History Brother Substance use disorder Social History Housing: Apartment Alcohol intake: current Patient Tobacco Use Status: Current everyday Tobacco user Cigarette Packs Per Day: 0 Cigarettes Per Day: 12 e-Cigarette/Vaping Use: Never Used Current occupational status: employed Current occupation: [employer] Cognitive needs: No Hearing needs: No Vision needs: No Questionnaire PHQ-9 Over the last 2 weeks, how often have you been bothered by any of the following problems? 1. Little interest or pleasure in doing things: not at all 2. Feeling down, depressed, or hopeless: not at all 3. Trouble falling or staying asleep, or sleeping too much: not at all 4. Feeling tired or having little energy: not at all 5. Poor appetite or overeating: not at all 6. Feeling bad about yourself - or that you are a failure or have let yourself or your family down: not at all 7. Trouble concentrating on things, such as reading the newspaper or watching television: not at all 8. Moving or speaking so slowly that other people could have noticed. Or the opposite - being so fidgety or restless that you have been moving around a lot more than usual: not at all 9. Thoughts that you would be better off or of hurting yourself in some way: not at all Total score: 0 Depression Screening Interpretation: Negative Depression Screening Done: Yes 73932 - PHQ-9 Billing: Yes Source: Developed by Drs. Matthew Valle, Renetta Cabral, Gian Samaniego and colleagues, with an educational perfecto from [employer]. Thrive Questionnaire Date Thrive assessed: 05/09/25 I am a: Patient What is your living situation today?: I have a steady place to live Within the past 12 months, did the food you bought not last and you didn't have the money to get more?: Never true Within the past 12 months, did you worry whether your food would run out before you got money to buy more?: Never true Do you have trouble paying for medicines?: No Do you have trouble getting transportation to medical appointments?: No Do you have trouble paying your heating and electricity bill?: No Do you have trouble taking care of your child, family member or friend?: No Do you have trouble with day-to-day activities such as bathing, preparing meals, shopping, managing finances, etc.?: No Are you currently unemployed and looking for a job?: No Are you interested in more education?: No Please select the resources that you would like help with: None Currently or been in a relationship where the following occur: No concerns reported THRIVE Score: 0 AUDIT C Alcohol Use Questionnaire (AUDIT-C) 1. How often do you have a drink containing alcohol?: Never 3. How often do you have six or more drinks on one occasion?: Never Total Score: 0 Score Reviewed/Action Taken: Yes CHUY-7 AMB Questionnaire CHUY-7 Date CHUY - 7 assessed: 05/15/25 Feeling nervous, anxious, or on edge: 0 = Not at all Not being able to stop or control worryin = Not at all Worrying too much about different things: 0 = Not at all Trouble relaxin = Not at all Being so restless that it is hard to sit still: 0 = Not at all Becoming easily annoyed or irritable: 0 = Not at all Feeling afraid as if something awful might happen: 0 = Not at all Total CHUY-7 score (0-4 normal; 5-9 mild; 10-14 moderate; 15-21 severe): 0 Source: Developed by Drs. Matthew Valle, Renetta Cabral, Gian Samaniego and colleagues, with an educational perfecto from [employer]. CHUY-7 Assessment Billing CHUY-7 Assessment Tool: CHUY-7 Assessment 33423 Review of Systems Const All systems reviewed & are unremarkable except as noted in HPI and below Physical exam (Primary Care) Vital Signs: Last Vital Signs Pulse 67 05/15/25 08:07 BP 122/74 05/15/25 08:07 Pulse Ox 97 05/15/25 08:07 Oxygen Delivery Method Room Air 05/15/25 08:07 BMI result Body Mass Index 29.3 Tobacco/Smoking Status: Tobacco use Status Tobacco use date assessed 05/15/25 05/15/25 08:09 Patient Tobacco Use Status Current everyday Tobacco 05/15/25 08:09 e-Cigarette/Vaping Use Never Used 05/15/25 08:09 PHQ-9: PHQ-9 Score PHQ-9: Total score 0 05/15/25 08:55 Depression Screening Interpretation: Negative Thrive Assessment: Date of Thrive Assessment Date Thrive assessed 05/09/25 05/15/25 08:09 Currently or been in a relationship where the following occur: No concerns reported Const General: comfortable and no acute distress Nutritional Appearance: obese Orientation/consciousness: patient oriented x3 HENMT Head: Yes normocephalic General nose exam: Normal external nose present Face and sinus: Yes face symmetric Mouth: Normal oral and palatal mucosa present and moist mucous membranes Eyes General: appearance normal, both eyes and all related structures Neck Neck: Yes full ROM, Yes no lymphadenopathy and Yes supple Resp Effort & Inspection: normal respiratory effort and able to speak in complete sentences Auscultation: clear to auscultation bilaterally Cardio Other: S1-S2 present regular rate and rhythm GI Inspection: Yes normal to inspection Palpation (GI): Soft to palpation, nontender, no guarding and no masses Auscultation: normal bowel sounds Male General Exam: Yes normal external exam Back/Spine/Pelvis Other: Limited range of motion in the lumbar spine due to pain, particularly with extension. Thoracic/Lumbar Spine: straight leg raise negative bilaterally Skin General skin exam: no rashes or lesions noted Neuro General: patient oriented x3, gait normal, tone normal, moves all extremities, Normal light touch and pain sensation, no focal motor deficits and CN's II-XI intact bilaterally Extrem General: Yes full ROM, Yes no joint enlargement, Yes no clubbing, cyanosis or edema, Yes no pedal edema, Yes no calf tenderness and Yes normal gait Psych Appearance: grossly normal and well kempt Mental Status: mental status grossly normal Speech and movement: Normal speech and movement present Affect: normal affect Attitude: cooperative Thought process: Normal thought process present Coding Level of Care Code Est Pt Level 4 (93001) Diagnoses Recurrent low back pain M54.50 Essential hypertension I10 Chronic GERD K21.9 Esophagitis K20.90 Additional Codes CHUY-7 Assessment Billing - CHUY-7 Assessment Tool: CHUY-7 Assessment 15161 ([id number]) PHQ-9 - 83151 - PHQ-9 Billing: Yes ([id number]) Assessment & Plan Assessment & Plan (1) Recurrent low back pain: Code(s): M54.50 - Low back pain, unspecified Category: Medical Plan: Scheduled for physical therapy once a week, advised to see if they can increase therapy to twice a week. Completed FMLA and short-term disability forms and given back to patient , prescription sent for tizanidine 4 mg per tablet to take 1 every 8 hours as needed for painful muscle spasm in lower back and to take Tylenol arthritis 650 mg 1 tablet once or twice a day as needed. (2) Essential hypertension: Code(s): I10 - Essential (primary) hypertension Category: Medical Plan: Blood pressure at goal of less than 130/80. Continue with current medication. Reinforced importance of following a low sodium diet, getting regular exercise, and lowering stress levels. (3) Chronic GERD: Code(s): K21.9 - Gastro-esophageal reflux disease without esophagitis Category: Medical Plan: Avoid NSAIDs. Continue omeprazole 20 mg daily (4) Esophagitis: Code(s): K20.90 - Esophagitis, unspecified without bleeding Category: Medical Plan: Avoid NSAIDs. Continue omeprazole 20 mg daily Medications: New tizanidine 4 mg PO Q8H PRN 30 tabs 0RF muscle spasticity/pain
== END 2025-05-15 08:59 | disposition home or self-care (01) ==
LOC: HO.HMCC 07:58
PROVIDERS: PCP Internal Medicine; Visit Provider Internal Medicine
DX: M54.50 Low back pain, unspecified (principal); I10 Essential (primary) hypertension; K21.9 Gastro-esophageal reflux disease without esophagitis; K20.90 Esophagitis, unspecified without bleeding

== ENCOUNTER → 2025-05-15 07:57 | Outpatient (BNVA) | payer OTHER, SELFPAY | PROVIDERS: PCP Internal Medicine; Visit Provider Internal Medicine | DX: K21.9 Gastro-esophageal reflux disease without esophagitis (principal); M54.50 Low back pain, unspecified; I10 Essential (primary) hypertension; K20.90 Esophagitis, unspecified without bleeding | CPT/HCPCS: 96127 ==

== ENCOUNTER 2025-05-23 15:41 | Outpatient (AMB) | payer OTHER, SELFPAY ==
--- NOTE | 2025-05-23 15:43 | A.OFFPC_ITS ---
Vital Signs 05/23/25 15:47 Height 5 ft 10 in Weight 206 lb BMI 29.6 BP 122/78 Blood Pressure Location Lt brachial Position Sitting Respiration 16 Pulse 69 Pulse Source Pulse Oximeter Temp 98.2 F Temp Source Oral Pulse Oximetry (%) 97 Oxygen Delivery Method Room Air Intake Visit Reasons: 10 day follow up Intake Note: Pt is here today for his 10days f/u back pain Allergies cat dander (CAT) Allergy (Mild, Verified 05/23/25 16:16) SNEEZE DUST Allergy (Mild, Uncoded 05/23/25 16:16) SNEEZE Medication List - Last Reconciled 05/23/25 by Sarah Palmer MD amlodipine-benazepril 5-10 mg 1 cap PO DAILY omeprazole 20 mg PO DAILY tizanidine 4 mg PO Q8H PRN Tobacco use date assessed: 05/15/25 Dental Screening Dental Screen Date: 05/15/25 HPI 10 day follow up HPI Details Patient series follow-up regarding low back pain. Has increased his physical therapy sessions to twice a day week and has noted a marked improvement in his back pain with treatment, continues to do exercises taught at physical therapy when at home. No other complaints at present time [facility] Medical History Recurrent low back pain Low back pain Heavy alcohol use History of adenomatous polyp of colon Elevated liver transaminase level Tubular adenoma of colon Essential hypertension Smoker unmotivated to quit Chronic GERD Surgical History History of esophagogastroduodenoscopy (EGD) Hx of colonoscopy H/O neck surgery Family History Brother Substance use disorder Social History Housing: Apartment Alcohol intake: current Patient Tobacco Use Status: Current everyday Tobacco user Cigarette Packs Per Day: 0 Cigarettes Per Day: 12 e-Cigarette/Vaping Use: Never Used Current occupational status: 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 Cognitive needs: No Hearing needs: No Vision needs: No Questionnaire Thrive Questionnaire Date Thrive assessed: 05/09/25 I am a: Patient What is your living situation today?: I have a steady place to live Within the past 12 months, did the food you bought not last and you didn't have the money to get more?: Never true Within the past 12 months, did you worry whether your food would run out before you got money to buy more?: Never true Do you have trouble paying for medicines?: No Do you have trouble getting transportation to medical appointments?: No Do you have trouble paying your heating and electricity bill?: No Do you have trouble taking care of your child, family member or friend?: No Do you have trouble with day-to-day activities such as bathing, preparing meals, shopping, managing finances, etc.?: No Are you currently unemployed and looking for a job?: No Are you interested in more education?: No Please select the resources that you would like help with: None Currently or been in a relationship where the following occur: No concerns reported THRIVE Score: 0 AUDIT C Alcohol Use Questionnaire (AUDIT-C) 2. How many drinks containing alcohol do you have on a typical day when you are drinking?: 7 to 9 3. How often do you have six or more drinks on one occasion?: Daily or almost daily Total Score: 7 CHUY-7 AMB Questionnaire CHUY-7 Date CHUY - 7 assessed: 05/15/25 Source: Developed by Drs. Matthew Valle, Renetta Cabral, Gian Samaniego and colleagues, with an educational perfecto from [employer]. Review of Systems Const All systems reviewed & are unremarkable except as noted in HPI and below Physical exam (Primary Care) Vital Signs: Last Vital Signs Temp 98.2 F 05/23/25 15:47 Pulse 69 05/23/25 15:47 Resp 16 05/23/25 15:47 BP 122/78 05/23/25 15:47 Pulse Ox 97 05/23/25 15:47 Oxygen Delivery Method Room Air 05/23/25 15:47 BMI result Body Mass Index 29.6 Tobacco/Smoking Status: Tobacco use Status Tobacco use date assessed 05/15/25 05/23/25 15:45 Patient Tobacco Use Status Current everyday Tobacco 05/23/25 15:45 e-Cigarette/Vaping Use Never Used 05/23/25 15:45 Thrive Assessment: Date of Thrive Assessment Date Thrive assessed 05/09/25 05/23/25 15:45 Currently or been in a relationship where the following occur: No concerns reported Const General: comfortable and no acute distress Nutritional Appearance: obese Orientation/consciousness: patient oriented x3 Neck Neck: Yes full ROM, Yes no lymphadenopathy and Yes supple Resp Effort & Inspection: normal respiratory effort and able to speak in complete sentences Auscultation: clear to auscultation bilaterally Cardio Other: S1-S2 present regular rate and rhythm Back/Spine/Pelvis Thoracic/Lumbar Spine: thoracic and lumbar spine normal to inspection, thoraco- lumbar ROM normal and straight leg raise negative bilaterally Skin General skin exam: no rashes or lesions noted Neuro General: patient oriented x3, gait normal, tone normal, moves all extremities, Normal light touch and pain sensation, no focal motor deficits and CN's II-XI intact bilaterally Extrem General: Yes full ROM, Yes no joint enlargement, Yes no clubbing, cyanosis or edema, Yes no pedal edema, Yes no calf tenderness and Yes normal gait Coding Level of Care Code Est Pt Level 4 (70875) Diagnoses Acute midline low back pain without sciatica M54.50 Back pain laterality: midline Chronicity: acute Sciatica presence: without sciatica Essential hypertension I10 Assessment & Plan Assessment & Plan (1) Low back pain: Code(s): M54.50 - Low back pain, unspecified Category: Medical Qualifiers: Back pain laterality: midline Chronicity: acute Sciatica presence: without sciatica Qualified Code(s): M54.50 - Low back pain, unspecified Plan: Continue with physical therapy twice a day week to complete 4 weeks. Patient states that it has been helping. He is currently out of work anterior cleared by Physical therapy (2) Essential hypertension: Code(s): I10 - Essential (primary) hypertension Category: Medical Plan: Blood pressure at goal of less than 130/80. Continue with amlodipine-benazepril 5-10 mg taken 1 daily Reinforced importance of following a low sodium diet, getting regular exercise, and lowering stress levels. Advised to cut back on alcohol intake and
[2025-05-23 15:47] VITALS: BP 122/78; PULSE 69; RESP 16; TEMP 36.8; O2SAT 97; BMI 29.6
== END 2025-05-23 16:16 | disposition home or self-care (01) ==
LOC: HO.HMCC 15:42
PROVIDERS: PCP Internal Medicine; Visit Provider Internal Medicine
DX: M54.50 Low back pain, unspecified (principal); I10 Essential (primary) hypertension

== ENCOUNTER 2025-06-06 10:00 | Outpatient (RCR) | payer OTHER, SELFPAY ==
--- NOTE | 2025-05-10 08:54 | MHC.PT.EP ---
[facility] [place] Office [place] Office [place] Office [address] Latrell Patricia [address] [phone] F: [phone] F: [phone] F: [phone] F: [phone] Physical Therapy Plan of Care Date of Evaluation: 05/10/25 Date of Surgery: n/a Diagnosis: low back pain Assessment: Patient is a 49 year old male presenting to PT with complaints of pain in his low back. 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 He presents today with impairments in pain, core strength, hip strength. 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 Pt expresses textile converter goal of reducing pain, and is motivated to work towards this in PT. Clinical presentation today is most consistent with signs and sx associated with low back pain and pt will benefit from skilled PT 2 week x 4 weeks to address the following problems and impairments noted upon evaluation: pain, core strength, hip strength. These problems limit the patient with the following functional activities: work, ADLs, bending, lifting, sitting, standing. The prescribed treatment plan of care is medically necessary. Co-morbidities of none were identified and taken into considerations of plan of care. Pt was educated on HEP, role of PT, prognosis, POC. Frequency and Duration: The patient will be seen 2 x week x 4 weeks Short Term Goals: Pt will demonstrate improved hip MMT strength by 1/3 grade in 2 weeks. Pt will demonstrate ability to perform PPT with good core control in 2 weeks. Mcc Goals: Pt will demonstrate improved Zaki score by 10% in 4 weeks for improved functional mobility. Pt will demonstrate ability to bend and lift with min to no pain in 4 weeks for return to PLOF. Pt will demonstrate ability to complete ADLs with min to no pain in 4 weeks for return to PLOF. Treatment Plan: Modalities to reduce pain, spasms and effusion. Manual therapy to restore motion and function. Therapeutic exercise to improve strength and flexibility. Neuromuscular re-education for posture and balance. Therapeutic activities to return to functional activities of daily living. Electronically signed by: Keyana Dockery, PT, DPT, ATC Please sign and return to therapist. Thank you for your referral.
--- NOTE | 2025-07-04 09:28 | MHC.PT.DC ---
[facility] [place] Office [place] Office [place] Office [address] Latrell Patricia [address] [phone] F: [phone] F: [phone] F: [phone] F: [phone] Physical Therapy Discharge Report Diagnosis: low back pain Date of Surgery: n/a Date of Evaluation: 05/10/25 Date of Discharge: 07/04/25 Treatments to Date: 7 Cancellations to Date: 0 No Shows to Date: 1 Discharge Status: Discharge Summary: Pt has not returned to PT in 30 days. Pt to be d/c per policy. Electronically signed by: Keyana Dockery, PT, DPT, ATC Please sign and return to therapist. Thank you for your referral.
== END 2025-07-04 09:29 | disposition home or self-care (01) ==
LOC: HO.PTCHIC 10:00
PROVIDERS: PCP Internal Medicine; Visit Provider Nurse Practitioner Family
DX: M54.50 Low back pain, unspecified (principal)
CPT/HCPCS: 97110; 97140; 97161

== ENCOUNTER 2025-06-15 08:40 | Outpatient (REF) | payer OTHER, SELFPAY ==
--- OUTSIDE RECORDS SUMMARY | 2025-06-15 08:58 | XMS_ITS | Clinical Summary ---
Author Organization [facility] Facility Address [address] [place] [address] Care Team Providers Care Advertisement Distributor Name Role Phone Mikel Palmer MD Primary Care Provider [phone] Medications amLODIPine-tabitha zepril (LOTREL 5-10) 5-10 MG [...] 1995 Influenza Vaccine (#1) 2025 Care Teams Advertisement Distributor Relationship Specialty Start Date End Date Mikel Palmer MD [address] [place] [id number] PCP - General 08/26/20
--- OUTSIDE RECORDS SUMMARY | 2025-06-15 08:58 | XMS_ITS | Encounter Summary ---
Author Organization [facility] Address [address] [place] [address] Phone Care Team Providers Care Manager Ent Name Role Phone Mikel Palmer MD Primary Care Provider [phone]- [phone] Reason for Visit * Reason Comments Med Refill Encounter Details Date Type Department Care Team (Late st Contact Info) Description 09/14/2022 Refill [facility] [address] [place] [address] Tad Ramirez MD Social History [...] on filedocumented in this encounter Care Teams Manager Ent Relationship Specialty Start Date End Date Mikel Palmer MD [address] [place] [id number] PCP - General 08/26/20 documented as of this encounter
[2025-06-15 11:12] LABS: Anion Gap 11 (12-20); Blood Urea Nitrogen 10 mg/dL (9-16); Calcium 9.2 mg/dL (8.4-10.2); Carbon Dioxide 25 mmol/L (22-29); Chloride 106 mmol/L (96-108); Estimated Glomerular Filt Rate > 60; Potassium 4.3 mmol/L (3.3-5.1); Sodium 138 mmol/L (135-145)
== END 2025-06-15 08:41 | disposition home or self-care (01) ==
LOC: HO.HMGCLDS 08:40
PROVIDERS: PCP Internal Medicine; Visit Provider Internal Medicine Hypertension Specialist
DX: I10 Essential (primary) hypertension (principal)
CPT/HCPCS: 36415; 80048

== ENCOUNTER 2025-06-18 14:30 | Outpatient (AMB) | payer OTHER, SELFPAY ==
--- NOTE | 2025-06-18 14:32 | HO.NEPHOV_ITS ---
Vital Signs 06/18/25 14:33 Height 50 ft 1 in Weight 211 lb BMI 0.4 BP 142/80 H Blood Pressure Location Rt brachial Position Sitting Pulse 76 Pulse Source Pulse Oximeter Pulse Oximetry (%) 99 Oxygen Delivery Method Room Air Intake Visit Reasons: 6 MO FU - CONF Dean Of Faculty Required: No Accompanied by: Self / Same As Patient Allergies cat dander (CAT) Allergy (Mild, Verified 07/04/25 09:05) SNEEZE DUST Allergy (Mild, Uncoded 07/04/25 09:05) SNEEZE Medication List - Last Reconciled 06/18/25 by Tad Ramirez MD amlodipine-benazepril 5-10 mg 1 cap PO DAILY omeprazole 20 mg PO DAILY HPI Comments Details: Middle man with hypertension. He was previously seen few years ago. He remains compliant with his medications. Still drinks 10 light beers a day. Used to drink 20! 06/18/2025. The patient is a 49-year-old male presenting with hypertension management and back pain. The patient has a history of hypertension, which is generally well-controlled with medication. He occasionally misses doses, but has implemented a weekly pill organizer to improve adherence. His home blood pressure readings typically range from 120/89 mmHg, indicating good control. The patient experienced back pain starting a month ago, for which he sought medical attention at a hospital and clinic. He reports improvement in symptoms following treatment, although specific interventions were not detailed in the conversation. [facility] Medical History (Updated 07/04/25 @ 09:19 by Sarah Palmer MD) Tick bite of abdomen Recurrent low back pain Low back pain Heavy alcohol use History of adenomatous polyp of colon Elevated liver transaminase level Tubular adenoma of colon Essential hypertension Smoker unmotivated to quit Chronic GERD Surgical History History of esophagogastroduodenoscopy (EGD) Hx of colonoscopy H/O neck surgery Family History Brother Substance use disorder Social History (Updated 07/04/25 @ 09:24 by Sarah Palmer MD) Housing: Apartment Alcohol intake: current Patient Tobacco Use Status: Current everyday Tobacco user Cigarette Packs Per Day: 0 Cigarettes Per Day: 12 e-Cigarette/Vaping Use: Never Used Current occupational status: employed and unemployed Cognitive needs: No Hearing needs: No Vision needs: No Physical Exam Vital Signs: Last Vital Signs Pulse 76 06/18/25 14:33 BP 142/80 H 06/18/25 14:33 Pulse Ox 99 06/18/25 14:33 Oxygen Delivery Method Room Air 06/18/25 14:33 BMI result Body Mass Index 0.4 Comfortable Neck supple no JVD. Lungs entry equal no rales. Heart S1-S2 heard no gallop or rub. Abdomen soft nontender. Neuro alert awake oriented. No asterixis. Extremities no edema. Const General: comfortable Nutritional Appearance: well nourished Orientation/consciousness: patient oriented x3 HEENT Head: No normal to inspection Mouth: moist mucous membranes Neck Neck: Yes supple and Yes no JVD Resp Auscultation: clear to auscultation bilaterally and no rales Cardio Jugular venous distension: no JVD Palpation: no palpable S3 and no palpable S4 Heart sounds: no rubs GI Palpation (GI): Soft to palpation and nontender Percussion: No Fluid wave present General: Yes no CVA tenderness Back/Spine/Pelvis Back: no CVA tenderness Skin General skin exam: no rashes or lesions noted Neuro General: patient oriented x3 Extrem General: Yes no pedal edema and No clubbing Results Reviewed Nephrology Results: Hgb, (14.0-18.0) 16.7 g/dl 07/05/25 WBC, (4.8-10.8) 6.5 X10*3/uL 07/05/25 Plt Count, (160-400) 255 X10*3/uL 07/05/25 Sodium, (135-145) 138 mmol/L 06/15/25 Potassium, (3.3-5.1) 4.3 mmol/L 06/15/25 Chloride, (96-108) 106 mmol/L 06/15/25 Carbon Dioxide, (22-29) 25 mmol/L 06/15/25 BUN, (9-16) 10 mg/dL 06/15/25 Creatinine, (0.5-1.4) 1.03 mg/dL 06/15/25 Calcium, (8.4-10.2) 9.2 mg/dL 06/15/25 Assessment & Plan Assessment & Plan (1) Essential hypertension: Code(s): I10 - Essential (primary) hypertension Category: Medical Plan: Blood pressure well controlled Discussed low-salt diet. Encouraged him to cut back on alcohol intake. Refills were given for the current prescription. Renal fuctcion is stable Orders: Orders UA and rflx microscopic 1 Year I10 - Essential (primary) hypertension Basic Metabolic Panel 1 Year I10 - Essential (primary) hypertension Creatinine Urine 1 Year I10 - Essential (primary) hypertension Total Protein Urine Random 1 Year I10 - Essential (primary) hypertension Coding Level of Care Code Est Pt Level 4 (42108) Diagnoses Essential hypertension I10
[2025-06-18 14:33] VITALS: BP 142/80; PULSE 76; O2SAT 99
== END 2025-06-18 14:43 | disposition home or self-care (01) ==
LOC: HO.HKA 14:31
PROVIDERS: PCP Internal Medicine; Visit Provider Internal Medicine Hypertension Specialist
DX: I10 Essential (primary) hypertension (principal)
CPT/HCPCS: 99214

== ENCOUNTER 2025-07-04 08:20 | Outpatient (AMB) | payer OTHER, SELFPAY ==
--- NOTE | 2025-07-04 08:44 | A.OFFPC_ITS ---
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 Blocking Machine Operator Required: No Allergies cat dander (CAT) Allergy (Mild, Verified 07/04/25 09:05) SNEEZE DUST Allergy (Mild, Uncoded 07/04/25 09:05) SNEEZE Medication List - Last Reconciled 07/04/25 by Sarah Palmer MD amlodipine-benazepril 5-10 mg 1 cap PO DAILY omeprazole 20 mg PO DAILY Tobacco use date assessed: 07/04/25 Dental Screening Dental Screen Date: 07/04/25 Did you have a dental visit in the last 12 months?: Yes Did you have a dental problem in the last 6 months where you did not have access to dental care?: No Was dental information given to patient?: Patient has dentist HPI Annual PE HPI Details 49 year old male with hypertension , has chronic GERD, cigarette smoke r unmotivated to quit, here for a physical exam [facility] Medical History (Updated 07/04/25 @ 09:19 by Sarah Palmer MD) Tick bite of abdomen Recurrent low back pain Low back pain Heavy alcohol use History of adenomatous polyp of colon Elevated liver transaminase level Tubular adenoma of colon Essential hypertension Smoker unmotivated to quit Chronic GERD Surgical History History of esophagogastroduodenoscopy (EGD) Hx of colonoscopy H/O neck surgery Family History Brother Substance use disorder Social History (Updated 07/04/25 @ 09:24 by Sarah Palmer MD) Housing: Apartment Alcohol intake: current Patient Tobacco Use Status: Current everyday Tobacco user Cigarette Packs Per Day: 0 Cigarettes Per Day: 12 e-Cigarette/Vaping Use: Never Used Current occupational status: employed and unemployed Cognitive needs: No Hearing needs: No Vision needs: No Questionnaire PHQ-9 Over the last 2 weeks, how often have you been bothered by any of the following problems? 1. Little interest or pleasure in doing things: not at all 2. Feeling down, depressed, or hopeless: not at all 3. Trouble falling or staying asleep, or sleeping too much: not at all 4. Feeling tired or having little energy: not at all 5. Poor appetite or overeating: not at all 6. Feeling bad about yourself - or that you are a failure or have let yourself or your family down: not at all 7. Trouble concentrating on things, such as reading the newspaper or watching television: not at all 8. Moving or speaking so slowly that other people could have noticed. Or the opposite - being so fidgety or restless that you have been moving around a lot more than usual: not at all 9. Thoughts that you would be better off or of hurting yourself in some way: not at all Total score: 0 Depression Screening Interpretation: Negative Depression Screening Done: Yes Source: Developed by Drs. Matthew Valle, Renetta Cabral, Gian Samaniego and colleagues, with an educational perfecto from [employer]. Thrive Questionnaire Date Thrive assessed: 05/09/25 I am a: Patient What is your living situation today?: I have a steady place to live Within the past 12 months, did the food you bought not last and you didn't have the money to get more?: Never true Within the past 12 months, did you worry whether your food would run out before you got money to buy more?: Never true Do you have trouble paying for medicines?: No Do you have trouble getting transportation to medical appointments?: No Do you have trouble paying your heating and electricity bill?: No Do you have trouble taking care of your child, family member or friend?: No Do you have trouble with day-to-day activities such as bathing, preparing meals, shopping, managing finances, etc.?: No Are you currently unemployed and looking for a job?: No Are you interested in more education?: No Please select the resources that you would like help with: None Currently or been in a relationship where the following occur: No concerns rep orted THRIVE Score: 0 AUDIT C Alcohol Use Questionnaire (AUDIT-C) 1. How often do you have a drink containing alcohol?: 4 or more times a week 2. How many drinks containing alcohol do you have on a typical day when you are drinking?: 3 or 4 3. How often do you have six or more drinks on one occasion?: Daily or almost daily Total Score: 9 Score Reviewed/Action Taken: Yes CHUY-7 AMB Questionnaire CHUY-7 Date CHUY - 7 assessed: 05/15/25 Feeling nervous, anxious, or on edge: 0 = Not at all Not being able to stop or control worryin = Not at all Worrying too much about different things: 0 = Not at all Trouble relaxin = Not at all Being so restless that it is hard to sit still: 0 = Not at all Becoming easily annoyed or irritable: 0 = Not at all Feeling afraid as if something awful might happen: 0 = Not at all Total CHUY-7 score (0-4 normal; 5-9 mild; 10-14 moderate; 15-21 severe): 0 Source: Developed by Drs. Matthew Valle, Renetta Cabral, Gian Samaniego and colleagues, with an educational perfecto from [employer]. Physical exam (Primary Care) Vital Signs: Last Vital Signs Temp 98.1 F 07/04/25 08:56 Pulse 68 07/04/25 08:56 Resp 15 07/04/25 08:56 BP 110/80 07/04/25 08:56 Pulse Ox 97 07/04/25 08:56 Oxygen Delivery Method Room Air 07/04/25 08:56 BMI result Body Mass Index 30.0 Tobacco/Smoking Status: Tobacco use Status Tobacco use date assessed 07/04/25 07/04/25 08:47 Patient Tobacco Use Status Current everyday Tobacco 07/04/25 09:24 e-Cigarette/Vaping Use Never Used 07/04/25 09:24 PHQ-9: PHQ-9 Score PHQ-9: Total score 0 07/04/25 09:08 Depression Screening Interpretation: Negative Thrive Assessment: Date of Thrive Assessment Date Thrive assessed 05/09/25 07/04/25 08:47 Currently or been in a relationship where the following occur: No concerns reported Immunizations Boostrix Tdap 2.5 Lf unit-8 mcg-5 Lf/0.5 mL intramuscular syringe Performing Provider: Sarah Palmer MD Performing Location: [facility] Administered by: Carolyne Gamez CMA on 07/04/25 09:25 Dose Route Admin Location Dispensed Lot Number Expiration Date NDC Die Repairer Trimmer Dies 0.5 mL IM Right Deltoid 0.5 mL [id number] 01/26/28 18360-924-66 [employer] Total Dispensed Waste 0.5 mL 0 % VIS Given Date VIS Provided VIS Publication Date 07/04/25 Single Vaccine 21 Eligibility Eligibility Date Funding Source Not [facility] Eligible 07/04/25 Private Results Reviewed Results Reviewed: Name: Corky Lundberg Age/Sex: 49/M : 1975 Unit#: [id number] Attend Dr: Tad Ramirez MD Re06/15/25 Status: DEP REF Location: [facility] Disch: SPEC : [id number] HUGO: 06/15/25 STATUS: COMP REQ : [id number] RECD: 06/15/[address]: Tad Ramirez MD COMP: 06/15/25 ENTERED: 06/15/[address]: Sarah Palmer MD ORDERED: BMP Test Result Flag Reference Sodium 138 135-145 mmol/L Potassium 4.3 3.3-5.1 mmol/L CL 106 96-108 mmol/L CO2 25 22-29 mmol/L Gap 11 L 12-20 BUN 10 9-16 mg/dL Creat 1.03 0.5-1.4 mg/dL eGFR > 60 Chronic Kidney Disease: Estimated GFR < 60 mL/min/1.73m2 Severe Kidney Disease: Estimated GFR < 15 mL/min/1.73m2 Glucose, Random 79 60-115 mg/dL CA 9.2 8.4-10.2 mg/dL Coding Level of Care Code Est Pt Prev Care 40-64y(19124) Diagnoses Chronic GERD K21.9 Smoker unmotivated to quit F17.200 Essential hypertension I10 Heavy alcohol use F10.90 Annual visit for general adult medical examination with abnormal findings Z00.01 Tick bite of abdomen S30.861A; W57.XXXA History of adenomatous polyp of colon Z86.0101 Assessment & Plan Assessment & Plan (1) Chronic GERD: Code(s): K21.9 - Gastro-esophageal reflux disease without esophagitis Category: Medical (2) Smoker unmotivated to quit: Code(s): F17.200 - Nicotine dependence, unspecified, uncomplicated Category: Social Hx (3) Essential hypertension: Code(s): I10 - Essential (primary) hypertension Category: Medical (4) Heavy alcohol use: Code(s): F10.90 - Alcohol use, unspecified, uncomplicated Category: Social Hx (5) Annual visit for general adult medical examination with abnormal findings: Code(s): Z00.01 - Encounter for general adult medical examination with abnormal findings (6) Tick bite of abdomen: Code(s): S30.861A - Insect bite (nonvenomous) of abdominal wall, initial encounter; W57.XXXA - Bitten or stung by nonvenomous insect and other nonvenomous arthropods, initial encounter Category: Medical (7) History of adenomatous polyp of colon: Comment: Seen on colonoscopy [address] Hernandez Code(s): Z86.0101 - Personal history of adenomatous and serrated colon polyps Category: Medical Orders: Orders Complete Blood Count Auto Diff Today F10.90 - Alcohol use, unspecified, uncomplicated, F17.200 - Nicotine dependence, unspecified, uncomplicated, I10 - Essential (primary) hypertension, K21.9 - Gastro-esophageal reflux disease without esophagitis, Z00.01 - Encounter for general adult medical examination with abnormal findings, Z13.220 - Encounter for screening for lipoid disorders Vitamin D 25-OH Total Today F10.90 - Alcohol use, unspecified, uncomplicated, F17.200 - Nicotine dependence, unspecified, uncomplicated, I10 - Essential (primary) hypertension, K21.9 - Gastro-esophageal reflux disease without esophagitis, Z00.01 - Encounter for general adult medical examination with abnormal findings, Z13.220 - Encounter for screening for lipoid disorders Lyme IgG/IgM w/reflex to WB Today S30.861A - Insect bite (nonvenomous) of abdominal wall, initial encounter, W57.XXXA - Bitten or stung by nonvenomous insect and other nonvenomous arthropods, initial encounter Lipid Panel Today F10.90 - Alcohol use, unspecified, uncomplicated, F17.200 - Nicotine dependence, unspecified, uncomplicated, I10 - Essential (primary) hypertension, K21.9 - Gastro-esophageal reflux disease without esophagitis, Z00.01 - Encounter for general adult medical examination with abnormal findings, Z13.220 - Encounter for screening for lipoid disorders Magnesium Today F10.90 - Alcohol use, unspecified, uncomplicated, F17.200 - Nicotine dependence, unspecified, uncomplicated, I10 - Essential (primary) hypertension, K21.9 - Gastro-esophageal reflux disease without esophagitis, Z00.01 - Encounter for general adult medical examination with abnormal findings, Z13.220 - Encounter for screening for lipoid disorders Liver Panel Today F10.90 - Alcohol use, unspecified, uncomplicated TDaP Immunization Today Z23 - Encounter for immunization
[2025-07-04 08:56] VITALS: BP 110/80; PULSE 68; RESP 15; TEMP 36.7; O2SAT 97
--- OUTSIDE RECORDS SUMMARY | 2025-07-04 16:00 | XMS_ITS | Clinical Summary ---
Author Organization [facility] Facility Address [address] [place] [address] Care Team Providers Care Search Engine Marketing Strategist Name Role Phone Mikel Palmer MD Primary Care Provider +1- [phone] Medications amLODIPine-tabitha zepril (LOTREL 5-10) 5-10 MG [...] 1995 Influenza Vaccine (#1) 2025 Care Teams Search Engine Marketing Strategist Relationship Specialty Start Date End Date Mikel Palmer MD PCP - General 08/26/20
--- OUTSIDE RECORDS SUMMARY | 2025-07-04 16:00 | XMS_ITS | Encounter Summary ---
Author Organization [facility] Address [address] [place] [address] Phone Care Team Providers Care Inside Sales Agent Name Role Phone Mikel Palmer MD Primary Care Provider +1- [phone] Reason for Visit * Reason Comments Med Refill Encounter Details Date Type Department Care Team (Late st Contact Info) Description 09/14/2022 Refill [facility] [address] [place] [address] Tad Ramirez MD Social History [...] on filedocumented in this encounter Care Teams Inside Sales Agent Relationship Specialty Start Date End Date Mikel Palmer MD PCP - General 08/26/20 documented as of this encounter
== END 2025-07-04 09:31 | disposition home or self-care (01) ==
LOC: HO.HMCC 08:21
PROVIDERS: PCP Internal Medicine; Visit Provider Internal Medicine
DX: Z23 Encounter for immunization (principal)

== ENCOUNTER → 2025-07-04 08:20 | Outpatient (BNVA) | payer OTHER, SELFPAY | PROVIDERS: PCP Internal Medicine; Visit Provider Internal Medicine | DX: Z00.01 Encounter for general adult medical examination with abnormal findings (principal); Z28.82 Immunization not carried out because of caregiver refusal; K21.9 Gastro-esophageal reflux disease without esophagitis; S30.861A Insect bite (nonvenomous) of abdominal wall, initial encounter; W57.XXXA Bitten or stung by nonvenomous insect and other nonvenomous arthropods, initial encounter; I10 Essential (primary) hypertension; F17.210 Nicotine dependence, cigarettes, uncomplicated; F10.90 Alcohol use, unspecified, uncomplicated | CPT/HCPCS: 90471; 90715; 96127 ==

== ENCOUNTER 2025-07-05 08:10 | Outpatient (REF) | payer OTHER, SELFPAY ==
--- OUTSIDE RECORDS SUMMARY | 2025-07-05 08:38 | XMS_ITS | Clinical Summary ---
Author Organization [facility] Facility Address [address] [place] [address] Care Team Providers Care Operations Leader Name Role Phone Mikel Palmer MD Primary Care Provider +1- [phone] Medications amLODIPine-tabitha zepril (LOTREL 5-10) 5-10 MG [...] 1995 Influenza Vaccine (#1) 2025 Care Teams Operations Leader Relationship Specialty Start Date End Date Mikel Palmer MD PCP - General 08/26/20
--- OUTSIDE RECORDS SUMMARY | 2025-07-05 08:38 | XMS_ITS | Encounter Summary ---
Author Organization [facility] Address [address] [place] [address] Phone Care Team Providers Care Renewals Specialist Name Role Phone Mikel Palmer MD Primary Care Provider +1- [phone] Reason for Visit * Reason Comments Med Refill Encounter Details Date Type Department Care Team (Late st Contact Info) Description 09/14/2022 Refill [facility] [address] [place] [address] Tad Ramirez MD Social History [...] on filedocumented in this encounter Care Teams Renewals Specialist Relationship Specialty Start Date End Date Mikel Palmer MD PCP - General 08/26/20 documented as of this encounter
[2025-07-05 10:19] LABS: MANUAL DIFF FLAG NO
[2025-07-05 10:23] LABS: Hematocrit 48.0 % (42.0-52.0); Hemoglobin 16.7 g/dl (14.0-18.0); Imm Gran Abs Auto 0.03 X10*3/uL (0.00-0.03); Imm Gran Pct Auto 0.5 % (0.0-0.4); Lymphocytes Absolute Auto 2.5 X10*3/uL (1.2-4.9); Mean Corpuscular HGB Conc 34.8 g/dl (31.0-36.0); Mean Corpuscular Hemoglobin 30.8 pg (27.0-33.0); Mean Corpuscular Volume 88.4 fL (80.0-98.0); NRBC Abs Auto 0.000 X10*3/uL (0.0-0.012); NRBC Pct Auto 0.0 /100WBC (0.0-0.2); Platelet Count 255 X10*3/uL (160-400); Red Blood Count 5.43 X10*6/uL (4.60-5.80); White Blood Count 6.5 X10*3/uL (4.8-10.8)
[2025-07-05 10:52] LABS: Alanine Aminotransferase 37 U/L (0-40); Albumin Level 4.4 g/dL (3.5-5.0); Alkaline Phosphatase 114 U/L (39-117); Aspartate Amino Transferase 37 U/L (5-37); Cholesterol 186 mg/dL (<200); HDL Cholesterol 47 mg/dL (>40); Magnesium 2.3 mg/dL (1.6-2.6); Total Protein 7.3 g/dL (6.5-8.0); Triglycerides 181 mg/dL (<150)
[2025-07-06 06:54] LABS: Lyme Abs Screen <0.90 index
== END 2025-07-05 08:11 | disposition home or self-care (01) ==
LOC: HO.HMGCLDS 08:10
PROVIDERS: PCP Internal Medicine; Visit Provider Internal Medicine
DX: Z01.84 Encounter for antibody response examination (principal); I10 Essential (primary) hypertension; K21.9 Gastro-esophageal reflux disease without esophagitis; S30.861A Insect bite (nonvenomous) of abdominal wall, initial encounter; F10.90 Alcohol use, unspecified, uncomplicated; F17.200 Nicotine dependence, unspecified, uncomplicated; Z13.220 Encounter for screening for lipoid disorders; W57.XXXA Bitten or stung by nonvenomous insect and other nonvenomous arthropods, initial encounter
CPT/HCPCS: 36415; 80061; 80076; 82306; 83735; 85025; 86617; 86618